=== PATIENT | female | born 1955 | race Caucasian/White ===

== ENCOUNTER 2023-09-21 10:10 | Day surgery (SDC) | payer OTHER ==
[2023-09-19 17:22] VITALS: BMI 29.9
[2023-09-21 13:13] VITALS: BP 117/69; PULSE 74; RESP 16; TEMP 97.3
== END 2023-09-21 12:30 | disposition home or self-care (01) ==
LOC: FASU-ENDO 10:10
PROVIDERS: ATTEND Internal Medicine Gastroenterology
PROC: 0DJD8ZZ Inspection of Lower Intestinal Tract, Via Natural or Artificial Opening Endoscopic (ICD-10-PCS; principal; 2023-09-21 11:19)
DX: Z12.11 Encounter for screening for malignant neoplasm of colon (principal); K64.1 Second degree hemorrhoids; K64.8 Other hemorrhoids

== ENCOUNTER → 2024-01-11 | Day surgery (SDC) | payer OTHER ==
[2023-12-06 15:47] VITALS: BMI 29.9
[2024-01-11 11:42] VITALS: TEMP 97.8
[2024-01-11 12:58] VITALS: RESP 18
[2024-01-11 13:26] VITALS: BP 134/72; PULSE 72
== END | disposition home or self-care (01) ==
LOC: FASU-ENDO 11:24
PROVIDERS: ATTEND Internal Medicine Gastroenterology
PROC: 0DJD8ZZ Inspection of Lower Intestinal Tract, Via Natural or Artificial Opening Endoscopic (ICD-10-PCS; principal; 2024-01-11 12:38)
DX: Z12.11 Encounter for screening for malignant neoplasm of colon (principal); K64.1 Second degree hemorrhoids